=== PATIENT | male | born 1985 | race African-American/Black ===

== ENCOUNTER 2018-07-20 11:55 | Emergency (ER) | payer OTHER ==
[~2018-07-20] VITALS: Ht 182.9 cm; Wt 90.7 kg
[2018-07-20 12:04] VITALS: BP 145/91
[2018-07-20] MEDS ORDERED: LIDOCAINE700 M1 TP (12:26)
[2018-07-20] MEDS ORDERED: IBUPROFEN600 MG ORAL (12:26)
[2018-07-20] MEDS ORDERED: ROBAXIN500 MG PO (12:26)
--- NOTE | 2018-07-20 12:27 | Emergency Room Report ---
History of Present Illness General Chief Complaint: Lower Back Pain or Injury Source: Patient Present Illness HPI 33-year-old male patient presents ER complaining of back pain 1 week. Patient reports that he was moving prior boxes at his job a week ago when he started to feel slow tightness in his lower back. Reports feels like "muscle tightness". Denies pain radiating down his legs. Reports able ambulate without difficulty. Denies bowel or bladder continence. Reports not taking any medication, states he has been using icy hot patches. Denies abdominal pain, dysuria, hematuria, diarrhea. Denies fever, chest pain, shortness of breath. Allergies: Coded Allergies: No Known Allergies (Unverified , 07/20/18) Patient History Past Medical History: see triage record Reviewed Nursing Documentation: PMH: Agreed; PSxH: Agreed Nursing Documentation-PMH Past Medical History: No Stated History Review of Systems All Other Systems: negative except mentioned in HPI Physical Exam Vital Signs Date Time Temp Pulse Resp B/P (MAP) Pulse Ox O2 Delivery O2 Flow Rate FiO2 07/20/18 11:57 99.0 82 16 145/91 97 Room Air 99.0 Sp02 EP Interpretation: reviewed, normal General Appearance: well appearing, no apparent distress, alert, GCS 15, non- toxic Head: normocephalic, atraumatic Eyes: bilateral eye normal inspection, bilateral eye PERRL ENT: hearing grossly normal, normal pharynx, no angioedema, normal voice, uvula midline, moist mucus membranes Neck: full range of motion Respiratory: lungs clear, normal breath sounds, no rhonchi, no respiratory distress, no accessory muscle use, no wheezing, speaking full sentences Cardiovascular #1: regular rate, rhythm, no edema Gastrointestinal: non tender, soft, no mass, non-distended, no guarding, no rebound Genitourinary: no CVA tenderness Musculoskeletal: back normal, digits/nails normal, gait/station normal, normal range of motion, non-tender Neurologic: alert, oriented x3, responsive, motor strength/tone normal, SLR negative, sensory intact Psychiatric: mood/affect normal Skin: no rash Medical Decision Making PA Attestation Dr. Pearson is my supervising Physician whom patient management has been discussed with. Diagnostic Impression: Primary Impression: Back muscle spasm ER Course Pt. presents to the ED c/o low back pain. Ddx considered but are not limited to fracture, sprain, strain, contusion, dislocation. No erythema, no warmth to touch, no fever, nontoxic appearing, low suspicion for septic joint. Vital signs: are WNL, pt. is afebrile Ordered X-ray and pain medication. ER COURSE Provided with pain medication. physical exam, no spinous process tenderness or bony depression, negative straight leg raise bilaterally, patient denies bowel or bladder incontinence, denies pain radiating down the legs, no tenderness to palpation, does not require imaging at this time, likely muscle spasm causing pain symptoms. Patient with lidocaine, muscle relaxant, ibuprofen for pain. Follow-up with PCP and get referral to physical therapy. Patient instructed on RICE method: rest, ice, compression, elevation. Patient instructed on rest, ice and heat. Patient instructed to be [employer] Workmen's Compensation paperwork completed. Contact information for orthopedic urgent care provided, follow-up with urgent care if unable to followup with primary care provider and get referral to slot service specialist. Followup with primary care provider. Discuss referral to ortho/pain management/ PT as needed. Discuss further imaging with MRI/CT as needed. DISCHARGE: -Rx provided for Ibuprofen for pain symptoms. -Rx provided for Methocarbamol. SE drowsiness, do not drink, drive, or operate heavy machinery while using. -Rx provided for Lidocaine patches At this time pt. is stable for d/c to home. Patient is resting comfortably, in no acute distress, nontoxic appearing, talking without difficulty. Will provide printed patient care instructions, and any necessary prescriptions. Patient instructed to follow with primary care provider in 3 - 5 days and to request further follow-up as needed. Care plan and follow up instructions have been discussed with the patient prior to discharge. Take medications as directed. Patient questions asked and answered. Patient reports understanding and agreement to treatment plan. ER precautions given, patient instructed to return to ER immediately for any new or worsening of symptoms. - Please note that this Emergency Department Report was dictated using [employer] technology software, occasionally this can lead to erroneous entry secondary to interpretation by the dictation equipment. Last Vital Signs Date Time Temp Pulse Resp B/P (MAP) Pulse Ox O2 Delivery O2 Flow Rate FiO2 07/20/18 12:04 99.0 82 16 145/91 97 Room Air 99.0 Disposition: HOME, SELF-CARE Condition: Stable Scripts Methocarbamol* (ROBAXIN*) 500 Mg Tablet 500 MG PO TID, #21 TAB 0 Refills Prov: Jack Brice 07/20/18 Ibuprofen* (MOTRIN*) 600 Mg Tablet 600 MG ORAL Q8H PRN for For Pain, #30 TAB 0 Refills Prov: Jack Brice 07/20/18 Lidocaine (Lidocaine) 1 Each Adh..patch 5 % TP DAILY for 7 Days, #7 PATCH Prov: Jack Brice 07/20/18 Patient Instructions: Lumbosacral Strain Additional Instructions: Patient instructed to follow up with primary care provider 3-5 and discuss further referral and imaging at that time. Discuss referral to physical therapy. Patient instructed on rest, ice and heat. Do not take muscle relaxant prior to drinking, driving, or operating heavy machinery. Take medications as directed. Patient questions asked and answered. ER precautions given, patient instructed to return to ER immediately for any new or worsening of symptoms. Jack Brice Jul 20, 2018 12:27
[2018-07-20] MEDS ORDERED: Methocarbamol 500mg tab ORAL ONE (12:30)
[2018-07-20 12:40] VITALS: BP 145/91
== END 2018-07-20 12:40 | disposition home or self-care (01) ==
LOC: EMR 12:30
DX: M62.830 Muscle spasm of back (principal)
CPT/HCPCS: 99283